=== PATIENT | male | born 1945 | race Caucasian/White ===

== ENCOUNTER 2017-05-06 11:55 | Inpatient (IN) | payer MEDICARE, MEDICAID ==
--- NOTE | 2017-05-06 12:32 | C.PDOC ---
History Of Present Illness 71 yr old male brought in via ambulance, presents to the ER with complaints of generalized weakness and occasional SOB for the past 1 month. Patient reports he had outpatient blood work done by his PMD on April 24 and was told his hemoglobin is 6.6 but wanted to rest at home. Patient denies fever, chest pain, nausea, vomiting, abdominal pain, diarrhea or rectal bleeding. Time Seen by Provider: 05/06/17 12:20 Chief Complaint (Nursing): Weakness/Neurological Deficit History Per: Patient History/Exam Limitations: no limitations Onset/Duration Of Symptoms: Persistent (1 month) Current Symptoms Are (Timing): Still Present Past Medical History Reviewed: Historical Data, Nursing Documentation, Vital Signs Vital Signs: Last Vital Signs Temp 98.4 F 05/06/17 14:01 Pulse 63 05/06/17 14:01 Resp 18 05/06/17 14:01 BP 155/67 H 05/06/17 14:01 Pulse Ox 100 05/06/17 14:01 - Medical History PMH: CHF, Diabetes, HTN, Hypercholesterolemia Family History: States: No Known Family Hx - Social History Hx Alcohol Use: No Hx Substance Use: No - Immunization History Hx Tetanus Toxoid Vaccination: No Hx Influenza Vaccination: No Hx Pneumococcal Vaccination: No Review Of Systems Except As Marked, All Systems Reviewed And Found Negative. Constitutional: Positive for: Weakness (Generalized). Negative for: Fever Cardiovascular: Negative for: Chest Pain Respiratory: Positive for: Shortness of Breath (Occasional ) Gastrointestinal: Negative for: Nausea, Vomiting, Abdominal Pain, Diarrhea, Rectal Pain Physical Exam - Physical Exam Appears: Well, Non-toxic, No Acute Distress, Other ((+) Speaking in full sentences.) Skin: Warm, Dry Head: Atraumatic, Normacephalic Eye(s): bilateral: Conjunctiva Pale Oral Mucosa: Moist Chest: Symmetrical, No Tenderness Cardiovascular: Rhythm Regular, No Murmur Respiratory: Normal Breath Sounds, No Rales, No Rhonchi, No Wheezing Rectal: Rectal Tone (normal ), No Maroon Stool, No Melena, No Blood Streaked Stool, No Hemorrhoids, No Mass, No Tenderness Extremity: Normal ROM, No Swelling Neurological/Psych: Oriented x3, Normal Speech, Normal Motor ED Course And Treatment - Laboratory Results Result Diagrams: 05/06/17 12:51 05/06/17 12:51 ECG: Interpreted By Me, Viewed By Me (NSR 67 bpm, normal axis, RBBB, no acute ST /T wave changes) ECG Interpretation: No Acute Changes, Abnormal O2 Sat by Pulse Oximetry: 100 (RA) Pulse Ox Interpretation: Normal Progress Note: PLAN: Blood work, CXR, EKG, & Urinlaysis ordered and reviewed. Patient given IV NS bolus. Hgb 6.3, further anemia studies ordered, and patient given 2 units PRBCs. - Physician Consult Information Physician Contacted: Pierre Anthony Outcome Of Conversation: Discussed patient with Dr. Anthony, he agrees with admission to hospitalist service. - Scribe Statement The provider has reviewed the documentation as recorded by the Mike Hernandez Provider Attestation: All medical record entries made by the Scribe were at my direction and personally dictated by me. I have reviewed the chart and agree that the record accurately reflects my personal performance of the history, physical exam, medical decision making, and the department course for this patient. I have also personally directed, reviewed, and agree with the discharge instructions and disposition.
[2017-05-06 13:01] LABS: BASO % 0.4 % (0.0-2.0); EOS % 0.4 % (0.0-4.0); HEMATOCRIT 20.1 % (35.0-51.0); LYMPH % 23.2 % (20.0-40.0); MEAN CELL VOLUME 73.7 fL (80.0-94.0); MEAN CORPUSCULAR HGB CONC 31.2 g/dL (33.0-37.0); MEAN PLATELET VOLUME 8.4 fL (7.2-11.7); MONO # 1.1 K/uL (0.0-0.8); MONO % 25.3 % (0.0-10.0); NRBC % 0.1 % (0.0-2.0); PLATELET COUNT 123 K/uL (130-400); RED CELL DISTRIBUTION WIDTH 19.7 % (11.5-14.5); WHITE BLOOD COUNT 4.5 K/uL (4.8-10.8)
[2017-05-06 13:10] LABS: RBC URINE 5 /hpf (0-3); URINE BILIRUBIN NEGATIVE (NEGATIVE); URINE BLOOD NEGATIVE (NEGATIVE); URINE COLOR Yellow (YELLOW); URINE GLUCOSE (UA) NORMAL (Normal); URINE KETONE NEGATIVE (NEGATIVE); URINE LEUKOCYTE ESTERASE NEG Leu/uL (Negative); URINE PROTEIN 2+ mg/dL (NEGATIVE); URINE UROBILINOGEN NORMAL mg/dL (0.2-1.0); WBC URINE 1 /hpf (0-5)
[2017-05-06 13:13] LABS: INR 1.1
[2017-05-06 13:17] LABS: CHLORIDE 96 mmol/L (98-107); POTASSIUM 4.6 mmol/L (3.6-5.2); SODIUM 133 mmol/L (132-148)
[2017-05-06 13:19] LABS: GFR AFRICAN-AMERICAN 48
[2017-05-06 13:20] LABS: ALKALINE PHOSPHATASE 65 U/L (38-126); ALT/SGPT 31 U/L (21-72); AST/SGOT 56 U/L (17-59); BILIRUBIN,TOTAL 0.6 mg/dL (0.2-1.3); BLOOD UREA NITROGEN 19 mg/dL (9-20); CALCIUM 9.6 mg/dl (8.6-10.4); CARBON DIOXIDE 24 mmol/L (22-30); GLUCOSE,RANDOM 167 mg/dL (75-110); TOTAL PROTEIN 7.7 g/dL (6.3-8.3)
[2017-05-06 13:42] LABS: NEUTROPHIL 68 % (50-75); TOTAL CELLS COUNTED 100
[2017-05-06 14:27] LABS: IRON 25 ug/dL (49-181)
--- NOTE | 2017-05-06 14:33 | RAD ---
PROCEDURE: CHEST RADIOGRAPH, 1 VIEW HISTORY: WEAKNESS COMPARISON: 08/07/2015 FINDINGS: LUNGS: Mild venous congestion. Bilateral hilar prominence. Upper lobe granulomatous changes with punctate nodular density at the left lung apex. Mild patchy increased markings at the right lung base. PLEURA: No pneumothorax or pleural fluid seen. CARDIOVASCULAR: Mild cardiomegaly. OSSEOUS STRUCTURES: Degenerative changes. VISUALIZED UPPER ABDOMEN: Normal. OTHER FINDINGS: None. IMPRESSION: Mild venous congestion. Bilateral hilar prominence. Upper lobe granulomatous changes with punctate nodular density at the left lung apex. Mild patchy increased markings at the right lung base.
[2017-05-06 15:30] LABS: FOLATE 9.1 ng/mL
--- NOTE | 2017-05-06 15:36 | CP.PCM.HP ---
History of Present Illness - History of Present Illness History of Present Illness: CC: weakness HPI: This is a 71 yo M with PMH significant for HTN, DMII and HLD that presents with the chief complaint of generalized weakness for the past month. He states that about 1 month ago he noticed that he had dark stools. A couple of days later the pt fell in his home due to weakness, at which time he did not seek medical attention. He did follow up with his PMD who ordered blood work at the time which revealed a low Hgb. Pt states that since then he has not noticed any further dark stools. He admits to decreased activity due to the weakness. He also admits to associated tachycardia with any minimal exertion. He denies any headaches, dizziness, chest pain, palpitations, sob (at rest), nausea or vomiting. PMH: as per HPI PSH: denies Home meds: Omeprazole, Hydralazine, Lasix, Atorvastatin, Pioglitazone, Janumet, Amlodipine, Atenolol, ASA Allergies: NKDA FH: non-contributory SH: Denies Etoh, tobacco or drugs Present on Admission - Present on Admission Any Indicators Present on Admission: No Review of Systems - Constitutional Constitutional: Fatigue, Weakness. absent: Chills, Fever - EENT Eyes: absent: Blurred Vision, Change in Vision - Cardiovascular Cardiovascular: absent: Chest Pain, Palpitations - Respiratory Respiratory: Dyspnea on Exertion. absent: Cough - Gastrointestinal Gastrointestinal: absent: Abdominal Pain, Constipation, Diarrhea, Nausea, Vomiting - Genitourinary Genitourinary: absent: Dysuria - Musculoskeletal Musculoskeletal: Numbness, Tingling. absent: Stiffness - Integumentary Integumentary: absent: Pruritus, Rash - Neurological Neurological: absent: Numbness, Tingling - Hematologic/Lymphatic Hematologic: absent: Easy Bruising Past Patient History - Infectious Disease Hx of Infectious Diseases: None - Past Social History Smoking Status: Never Smoked - CARDIAC Hx Congestive Heart Failure: Yes Hx Hypercholesterolemia: Yes Hx Hypertension: Yes - ENDOCRINE/METABOLIC Hx Endocrine Disorders: Yes Hx Diabetes Mellitus Type 2: Yes - GASTROINTESTINAL Hx Gastrointestinal Disorders: Yes Hx Gastroesophageal Reflux: Yes - PSYCHIATRIC Hx Substance Use: No - SURGICAL HISTORY Hx Surgeries: No Meds Allergies/Adverse Reactions: Allergies Allergy/AdvReac Type Severity Reaction Status Date / Time No Known Allergies Allergy Verified 05/06/17 12:16 Physical Exam - Constitutional Appears: Non-toxic, No Acute Distress - Head Exam Head Exam: ATRAUMATIC, NORMOCEPHALIC - Eye Exam Eye Exam: EOMI Pupil Exam: PERRL - ENT Exam ENT Exam: Mucous Membranes Moist - Respiratory Exam Respiratory Exam: Clear to Auscultation Bilateral, NORMAL BREATHING PATTERN - Cardiovascular Exam Cardiovascular Exam: +S1, +S2, Systolic Murmur - GI/Abdominal Exam GI & Abdominal Exam: Normal Bowel Sounds, Soft. absent: Distended, Guarding - Extremities Exam Extremities exam: Positive for: normal inspection - Back Exam Back exam: NORMAL INSPECTION - Neurological Exam Neurological exam: Alert, Oriented x3 - Skin Skin Exam: Dry, Warm Results - Vital Signs Recent Vital Signs: Last Vital Signs Temp 98.1 F 05/06/17 14:32 Pulse 63 05/06/17 15:10 Resp 16 05/06/17 15:10 BP 163/64 H 05/06/17 15:10 Pulse Ox 100 05/06/17 15:10 - Labs Result Diagrams: 05/06/17 12:51 05/06/17 12:51 Assessment & Plan - Assessment and Plan (Free Text) Assessment: Anemia - unknown chronicity - Hgb - 6.3 - Stool guaiac neg in ED - Being transfused 2 units of PRBCs - H/H Q6H for 24 hours - Transfuse as necessary - GI on consult - help appreciated - Abd/Pelvis CT with PO contrast - r/o mass - f/u - Monitor s/s for bleeding Weakness - Likely d/t anemia HTN - Cont home meds DM - Sliding scale coverage - accucheck ACHS - Diabetic diet PPX - Protonix - Holding chemical DVT ppx for suspected GI bleed - SCDs - Holding home ASA
--- NOTE | 2017-05-06 16:26 | CP.PCM.CON ---
History of Present Illness - History of Present Illness History of Present Illness: COVERING DR MOONEY/NORM: 71 yo male admitted with symptomatic anemia and indices c/w iron deficiency with low iron saturation, low ferritin and high RDW. Denies epigastric pain, heartburn or active bleeding. Describes dark stools one month ago and near syncope but no medical attention. Has been taking baby ASA daily. No hematemesis , rectal bleeding, Nausea or vomiting. Denies etoh, Nsaid use. No h/o PUD. Asked to evaluate for anemia and suspected GI bleeding. Stool OB in ER was negative. Past Patient History - Infectious Disease Hx of Infectious Diseases: None - Past Social History Smoking Status: Never Smoked Alcohol: None - CARDIAC Hx Congestive Heart Failure: Yes Hx Hypercholesterolemia: Yes Hx Hypertension: Yes - PULMONARY Hx Respiratory Disorders: No - NEUROLOGICAL Hx Neurological Disorder: No - ENDOCRINE/METABOLIC Hx Endocrine Disorders: Yes Hx Diabetes Mellitus Type 2: Yes - HEMATOLOGICAL/ONCOLOGICAL Hx Anemia: Yes Hx Blood Transfusions: No Hx Cirrhosis: No Hx Hepatitis A: No Hx Hepatitis B: No Hx Hepatitis C: No Hx Human Immunodeficiency Virus (HIV): No - GASTROINTESTINAL Hx Gastrointestinal Disorders: Yes Hx Bowel Surgery: No Hx Clostridium Difficile: No Hx Colitis: No Hx Colostomy: No Hx Constipation: No Hx Crohn's Disease: No Hx Diarrhea: No Hx Diverticulitis: No Hx Esophageal Varices: No Hx Fatty Liver Disease: No Hx Gall Bladder Disease: No Hx Gastritis: No Hx Gastroesophageal Reflux: Yes Hx Hemorrhoids: No Hx Ileostomy: No Hx Irritable Bowel: No Hx Liver Failure: No Hx Nausea: No Hx Pancreatitis: No HX Swallowing Problems: No Hx Ulcer: No Hx Vomiting: No - PSYCHIATRIC Hx Substance Use: No - SURGICAL HISTORY Hx Surgeries: No Meds Allergies/Adverse Reactions: Allergies Allergy/AdvReac Type Severity Reaction Status Date / Time No Known Allergies Allergy Verified 05/06/17 12:16 - Medications Medications: Current Medications Amlodipine Besylate (Norvasc) 10 mg PO DAILY [facility] Atenolol (Tenormin) 100 mg PO DAILY [facility] Hydralazine HCl (Apresoline) 50 mg PO BID [facility] Insulin Human Regular (Novolin R) 0 unit SC ACHS [facility] PRN Reason: Protocol Pantoprazole Sodium (Protonix Inj) 40 mg IVP DAILY [facility] Physical Exam - Constitutional Appears: No Acute Distress - Head Exam Head Exam: ATRAUMATIC - Eye Exam Eye Exam: EOMI, PERRL Pupil Exam: NORMAL ACCOMODATION, PERRL - Respiratory Exam Respiratory Exam: NORMAL BREATHING PATTERN - Cardiovascular Exam Cardiovascular Exam: REGULAR RHYTHM, +S1 - GI/Abdominal Exam GI & Abdominal Exam: Normal Bowel Sounds, Soft. absent: Distended, Mass, Rebound, Tenderness - Rectal Exam Rectal Exam: NORMAL INSPECTION - Extremities Exam Extremities exam: Positive for: normal inspection - Neurological Exam Neurological exam: Alert, CN II-XII Intact, Oriented x3 - Psychiatric Exam Psychiatric exam: Normal Affect, Normal Mood - Skin Skin Exam: Dry, Warm Results - Vital Signs Recent Vital Signs: Last Vital Signs Temp 98.5 F 05/06/17 15:42 Pulse 84 05/06/17 15:42 Resp 20 05/06/17 15:42 BP 170/80 H 05/06/17 15:42 Pulse Ox 100 05/06/17 15:42 - Labs Result Diagrams: 05/07/17 06:03 05/07/17 06:03 Assessment & Plan (1) Iron deficiency anemia Assessment and Plan: Iron deficiency anemia with remote h/o possible dark/melanotic stools one month ago. r/o PUD given h/o ASA use. other possible sources include gastritis, AVM, erosive esophagitis, LGI source including occult cancer, polyposis, ischemic or other colitis, IBD, diverticular disease, etc. Does not appear to be actively bleeding at present given negative stool exam on admission Rec/ Repeat stool OBx3 check B12 and folate levels Agree with transfusion to hgb>9. Protonix IV Hold ASA or anticoagulants Will plan for EGD in am and colonoscopy to follow before discharge later in the week if medically stable or as outpatient. Case discussed with Dr Hughes and [employer] on the case. Status: Acute Priority: High (2) Melena Status: Resolved
[2017-05-06] MEDS: (Novolin R) Insulin Human Regular 100 units/ml vial SC SCH ×4 (16:53→21:44)
[2017-05-06 23:34] LABS: BASO % 0.7 % (0.0-2.0); EOS # 0.1 K/uL (0.0-0.7); EOS % 1.4 % (0.0-4.0); HEMATOCRIT 23.4 % (35.0-51.0); LYMPH # 1.3 K/uL (1.0-4.3); MEAN CELL VOLUME 74.6 fL (80.0-94.0); MEAN CORPUSCULAR HEMOGLOBIN 23.8 pg (27.0-31.0); MEAN CORPUSCULAR HGB CONC 31.9 g/dL (33.0-37.0); MEAN PLATELET VOLUME 9.2 fL (7.2-11.7); MONO # 1.2 K/uL (0.0-0.8); MONO % 21.8 % (0.0-10.0); PLATELET COUNT 116 K/uL (130-400); RED CELL DISTRIBUTION WIDTH 19.8 % (11.5-14.5); WHITE BLOOD COUNT 5.6 K/uL (4.8-10.8)
[2017-05-06 23:43] LABS: POTASSIUM 4.5 mmol/L (3.6-5.2)
[2017-05-06 23:45] LABS: BILIRUBIN,TOTAL 0.8 mg/dL (0.2-1.3)
[2017-05-06 23:46] LABS: TOTAL PROTEIN 7.8 g/dL (6.3-8.3)
[2017-05-06 23:47] LABS: CALCIUM 9.6 mg/dl (8.6-10.4)
[2017-05-07] MEDS ORDERED: Dextrose 5%/0.9% NS 1,000 ML IV SCH (01:00)
[2017-05-07 03:27] LABS: BASOPHIL 1 % (0-2); EOSINOPHIL 1 % (0-4); NEUTROPHIL 51 % (50-75); REACTIVE LYMPHOCYTES 3 % (0-0); TOTAL CELLS COUNTED 100
[2017-05-07 03:28] LABS: GIANT PLATELETS PRESENT; SPHEROCYTES MODERATE
[2017-05-07 06:15] LABS: HEMATOCRIT 25.5 % (35.0-51.0); MEAN CORPUSCULAR HEMOGLOBIN 24.4 pg (27.0-31.0); MEAN CORPUSCULAR HGB CONC 32.1 g/dL (33.0-37.0); MEAN PLATELET VOLUME 8.5 fL (7.2-11.7); RED CELL DISTRIBUTION WIDTH 19.6 % (11.5-14.5); WHITE BLOOD COUNT 4.5 K/uL (4.8-10.8)
[2017-05-07 06:50] LABS: CHLORIDE 95 mmol/L (98-107); POTASSIUM 4.4 mmol/L (3.6-5.2); SODIUM 128 mmol/L (132-148)
[2017-05-07 06:52] LABS: ALB/GLOB RATIO 0.9 (1.0-2.1); AST/SGOT 51 U/L (17-59); BILIRUBIN,TOTAL 1.2 mg/dL (0.2-1.3); CARBON DIOXIDE 23 mmol/L (22-30); GFR AFRICAN-AMERICAN > 60; TOTAL PROTEIN 7.7 g/dL (6.3-8.3)
[2017-05-07 06:53] LABS: ALKALINE PHOSPHATASE 54 U/L (38-126); ALT/SGPT 27 U/L (21-72); BLOOD UREA NITROGEN 19 mg/dL (9-20); CALCIUM 9.2 mg/dl (8.6-10.4); GLUCOSE,RANDOM 165 mg/dL (75-110); MAGNESIUM 1.3 mg/dL (1.6-2.3); PHOSPHOROUS 4.6 mg/dL (2.5-4.5)
[2017-05-07] MEDS ORDERED: Propofol 10 mg/ml Inj (20 ML) ONE (07:25)
--- NOTE | 2017-05-07 07:55 | CP.PCM.PN ---
Subjective - Date & Time of Evaluation Date of Evaluation: 05/07/17 Time of Evaluation: 07:52 - Subjective Subjective: EGD: Acute pre-pyloric gastric antral ulcer without stigmata of hemorrhage, margins biopsied Acute antral gastritis Rec/ PPI bid for one week then daily Colonoscopy on Sunday if patient still admitted or may be done a outpatient if discharge planned. Would need to be sure by his PCP that he is not lost to follow up!! Repeat EGD in 8 weeks to assess ulcer healing and r/o malignancy. Objective - Vital Signs/Intake and Output Vital Signs (last 24 hours): Temp Pulse Resp BP Pulse Ox 97.4 F L 84 20 156/74 H 96 05/07/17 07:42 05/07/17 07:42 05/07/17 07:42 05/07/17 07:42 05/07/17 07:42 Intake and Output: 05/07/17 05/07/17 06:59 18:59 Intake Total 1060 0 Output Total 1500 Balance -440 0 - Medications Medications: Current Medications Amlodipine Besylate (Norvasc) 10 mg PO DAILY [facility] Atenolol (Tenormin) 100 mg PO DAILY [facility] Last Admin: 05/07/17 06:52 Dose: 100 mg Hydralazine HCl (Apresoline) 50 mg PO BID [facility] Last Admin: 05/06/17 18:01 Dose: 50 mg Dextrose/Sodium Chloride (Dextrose 5%/0.9% Ns 1000 Ml) 1,000 mls @ 80 mls/hr IV .[id number] [facility] Last Admin: 05/07/17 05:00 Dose: 80 mls/hr Insulin Human Regular (Novolin R) 0 unit SC ACHS [facility] PRN Reason: Protocol Last Admin: 05/06/17 21:44 Dose: Not Given Pantoprazole Sodium (Protonix Inj) 40 mg IVP DAILY [facility] Pneumococcal Polyvalent Vaccine (Pneumovax 23 Vaccine) 0.5 ml IM .ONCE ONE Stop: 05/08/17 10:01 - Labs Labs: 05/07/17 06:03 05/07/17 06:03 PT 13.1 SECONDS (9.7-12.2) H 05/06/17 12:51 INR 1.1 05/06/17 12:51 APTT 29 SECONDS (21-34) 05/06/17 12:51 Assessment and Plan (1) Iron deficiency anemia Status: Acute (2) Melena Status: Resolved
[2017-05-07 08:07] VITALS: TEMP 97.8; O2SAT 100
[2017-05-07 08:35] VITALS: BP 140/80; PULSE 57; RESP 13
[2017-05-07] MEDS ORDERED: Pantoprazole 40 mg EC Tab PO SCH (10:00)
--- NOTE | 2017-05-07 10:28 | CP.PCM.PN ---
Subjective - Date & Time of Evaluation Date of Evaluation: 05/07/17 Time of Evaluation: 10:22 - Subjective Subjective: PGY1 Progress note for Dr. Hughes: Patient seen and examined. Patient s/p EGD with Dr. Sotelo today. Patient states he feels much better after transfusion. Patient complaining of abdominal distention after EGD. Discussed with patient results of EGD and necessity for colonoscopy on Sunday. Patient will have to prep for colonoscopy tomorrow. Objective - Vital Signs/Intake and Output Vital Signs (last 24 hours): Temp Pulse Resp BP Pulse Ox 97.8 F 57 L 13 140/80 100 05/07/17 07:59 05/07/17 08:29 05/07/17 08:29 05/07/17 08:29 05/07/17 08:29 Intake and Output: 05/07/17 05/07/17 06:59 18:59 Intake Total 1060 500 Output Total 1500 Balance -440 500 - Medications Medications: Current Medications Amlodipine Besylate (Norvasc) 10 mg PO DAILY [facility] Atenolol (Tenormin) 100 mg PO DAILY [facility] Last Admin: 05/07/17 06:52 Dose: 100 mg Bisacodyl (Dulcolax) 10 mg PO ONCE ONE Stop: 05/08/17 17:01 Hydralazine HCl (Apresoline) 50 mg PO BID [facility] Last Admin: 05/06/17 18:01 Dose: 50 mg Insulin Human Regular (Novolin R) 0 unit SC ACHS [facility] PRN Reason: Protocol Last Admin: 05/06/17 21:44 Dose: Not Given Pantoprazole Sodium (Protonix Ec Tab) 40 mg PO BID [facility] Pneumococcal Polyvalent Vaccine (Pneumovax 23 Vaccine) 0.5 ml IM .ONCE ONE Stop: 05/08/17 10:01 Polyethylene Glycol/Electrolytes (Golytely) 4,000 ml PO ONCE ONE Stop: 05/08/17 19:01 - Labs Labs: 05/07/17 06:03 05/07/17 06:03 PT 13.1 SECONDS (9.7-12.2) H 05/06/17 12:51 INR 1.1 05/06/17 12:51 APTT 29 SECONDS (21-34) 05/06/17 12:51 - Constitutional Appears: Non-toxic, No Acute Distress - Eye Exam Eye Exam: EOMI - ENT Exam ENT Exam: Mucous Membranes Moist - Respiratory Exam Respiratory Exam: Clear to Ausculation Bilateral, NORMAL BREATHING PATTERN - Cardiovascular Exam Cardiovascular Exam: +S1, +S2 - GI/Abdominal Exam GI & Abdominal Exam: Soft, Normal Bowel Sounds. absent: Tenderness - Extremities Exam Extremities Exam: Normal Inspection - Neurological Exam Neurological Exam: Alert, Awake - Psychiatric Exam Psychiatric exam: Normal Affect - Skin Skin Exam: Dry, Warm Assessment and Plan - Assessment and Plan (Free Text) Assessment: Anemia - Hgb - 6.3 on admission, repeat this AM 8.2 s/p transfusion of 2 units PRBC - Stool guaiac neg in ED - H/H Q6H for 24 hours - Transfuse as necessary - Abd/Pelvis CT with PO contrast - r/o mass - f/u - Monitor s/s for bleeding - GI, Dr. Sotelo, on consult - help appreciated * patient s/p EGD 05/07- acute pre-pyloric gastric antral ulcer without stigmata of hemorrhage- biopsied- per Dr. Sotelo, ulcer could be source of bleeding but patient will need colonoscopy on Sunday * Protonix 40mg BID for one week * repeat EGD in 8 weeks Weakness - Likely secondary to anemia HTN - Cont home meds- hydralazine 50mg BID, atenolol 100mg daily, norvasc 10mg daily DM - Sliding scale coverage - accucheck ACHS - Diabetic diet - holding home meds actos, janumet PPX - Protonix 40mg BID - Holding chemical DVT ppx - SCDs - Holding home ASA - PT/ OT
[2017-05-07] MEDS: (Novolin R) Insulin Human Regular 100 units/ml vial SC SCH ×2 (11:08→12:27)
[2017-05-07] MEDS ORDERED: Pneumococcal 23-Valent Vaccine IM ONE (13:30)
--- NOTE | 2017-05-07 14:03 | CP.PCM.DIS ---
Provider - Provider Date of Admission: 05/06/17 14:08 Attending physician: Pierre Anthony MD Primary care physician: Dr. Chávez Consults: Dr. Sotelo Time Spent in preparation of Discharge (in minutes): 35 Diagnosis - Discharge Diagnosis (1) Gastric ulcer Status: Acute Comment: Patient s/p EGD with Dr. Sotelo today, 05/07. Patient is leaving the hospital against medical advice. Patient is advised to follow up with his PMD for referral to GI for outpatient colonoscopy and repeat EGD in 8 weeks. Patient is being script for protonix 40mg twice day for one week. Hospital Course - Lab Results Lab Results: Most Recent Lab Values WBC 4.5 K/uL (4.8-10.8) L 05/07/17 06:03 RBC 3.36 Mil/uL (4.40-5.90) L 05/07/17 06:03 Hgb 8.2 g/dL (12.0-18.0) L 05/07/17 06:03 Hct 25.5 % (35.0-51.0) L 05/07/17 06:03 MCV 76.0 fL (80.0-94.0) L 05/07/17 06:03 MCH 24.4 pg (27.0-31.0) L 05/07/17 06:03 MCHC 32.1 g/dL (33.0-37.0) L 05/07/17 06:03 RDW 19.6 % (11.5-14.5) H 05/07/17 06:03 Plt Count 103 K/uL (130-400) L 05/07/17 06:03 MPV 8.5 fL (7.2-11.7) 05/07/17 06:03 Neut % (Auto) 52.1 % (50.0-75.0) 05/06/17 23:32 Lymph % (Auto) 24.0 % (20.0-40.0) 05/06/17 23:32 [place] % (Auto) 21.8 % (0.0-10.0) H 05/06/17 23:32 Eos % (Auto) 1.4 % (0.0-4.0) 05/06/17 23:32 Baso % (Auto) 0.7 % (0.0-2.0) 05/06/17 23:32 Neut # 2.9 K/uL (1.8-7.0) 05/06/17 23:32 Lymph # 1.3 K/uL (1.0-4.3) 05/06/17 23:32 [place] # 1.2 K/uL (0.0-0.8) H 05/06/17 23:32 Eos # 0.1 K/uL (0.0-0.7) 05/06/17 23:32 Baso # 0.0 K/uL (0.0-0.2) 05/06/17 23:32 Neutrophils % (Manual) 51 % (50-75) 05/06/17 23:32 Lymphocytes % (Manual) 16 % (20-40) L 05/06/17 23:32 Reactive Lymphs % 3 % (0-0) H 05/06/17 23:32 Monocytes % (Manual) 28 % (0-10) H 05/06/17 23:32 Eosinophils % (Manual) 1 % (0-4) 05/06/17 23:32 Basophils % (Manual) 1 % (0-2) 05/06/17 23:32 Platelet Estimate Decreased (NORMAL) L 05/06/17 23:32 Giant Platelets Present 05/06/17 23:32 Polychromasia Slight 05/06/17 12:51 Hypochromasia (manual) Slight 05/06/17 23:32 Poikilocytosis (manual Slight 05/06/17 23:32 Anisocytosis (manual) Slight 05/06/17 23:32 Microcytosis (manual) Slight 05/06/17 23:32 Spherocytes Moderate 05/06/17 23:32 Ovalocytes Slight 05/06/17 12:51 Retic Count 2.5 % (0.5-1.5) H 05/06/17 13:59 PT 13.1 SECONDS (9.7-12.2) H 05/06/17 12:51 INR 1.1 05/06/17 12:51 APTT 29 SECONDS (21-34) 05/06/17 12:51 Sodium 128 mmol/L (132-148) L 05/07/17 06:03 Potassium 4.4 mmol/L (3.6-5.2) 05/07/17 06:03 Chloride 95 mmol/L (98-107) L 05/07/17 06:03 Carbon Dioxide 23 mmol/L (22-30) 05/07/17 06:03 Anion Gap 14 (10-20) 05/07/17 06:03 BUN 19 mg/dL (9-20) 05/07/17 06:03 Creatinine 1.3 MG/DL (0.8-1.5) 05/07/17 06:03 Est GFR ( Amer) > 60 05/07/17 06:03 Est GFR (Non-Af Amer) 55 05/07/17 06:03 POC Glucose (mg/dL) 335 mg/dL (65-110) H 05/07/17 11:12 Random Glucose 165 mg/dL (75-110) H 05/07/17 06:03 Calcium 9.2 mg/dl (8.6-10.4) 05/07/17 06:03 Phosphorus 4.6 mg/dL (2.5-4.5) H 05/07/17 06:03 Magnesium 1.3 mg/dL (1.6-2.3) L 05/07/17 06:03 Iron 25 ug/dL (49-181) L 05/06/17 13:59 TIBC 501 ug/dL (250-450) H 05/06/17 13:59 % Saturation 5 (20-55) L 05/06/17 13:59 Transferrin 403.28 mg/dL (206-381) H 05/06/17 13:59 Ferritin 7.6 ng/mL 05/06/17 13:59 Total Bilirubin 1.2 mg/dL (0.2-1.3) 05/07/17 06:03 AST 51 U/L (17-59) 05/07/17 06:03 ALT 27 U/L (21-72) 05/07/17 06:03 Alkaline Phosphatase 54 U/L (38-126) 05/07/17 06:03 Total Creatine Kinase 119 U/L (55-170) 05/06/17 12:51 CK-MB (Mass) 2.75 ng/mL (0.0-3.38) 05/06/17 12:51 Troponin I < 0.0120 ng/mL (0.00-0.120) 05/06/17 12:51 NT-Pro-B Natriuret Pep 274 pg/mL (0-900) 05/06/17 12:51 Total Protein 7.7 g/dL (6.3-8.3) 05/07/17 06:03 Albumin 3.7 g/dL (3.5-5.0) 05/07/17 06:03 Globulin 4.0 gm/dL (2.2-3.9) H 05/07/17 06:03 Albumin/Globulin Ratio 0.9 (1.0-2.1) L 05/07/17 06:03 Vitamin B12 474 pg/mL (239-931) 05/06/17 13:59 Folate 9.1 ng/mL 05/06/17 13:59 Urine Color Yellow (YELLOW) 05/06/17 12:54 Urine Clarity Clear (Clear) 05/06/17 12:54 Urine pH 7.0 (5.0-8.0) 05/06/17 12:54 Ur Specific [place] 1.010 (1.003-1.030) 05/06/17 12:54 Urine Protein 2+ mg/dL (NEGATIVE) H 05/06/17 12:54 Urine Glucose (UA) Normal mg/dL (Normal) 05/06/17 12:54 Urine Ketones Negative mg/dL (NEGATIVE) 05/06/17 12:54 Urine Blood Negative (NEGATIVE) 05/06/17 12:54 Urine Nitrate Negative (NEGATIVE) 05/06/17 12:54 Urine Bilirubin Negative (NEGATIVE) 05/06/17 12:54 Urine Urobilinogen Normal mg/dL (0.2-1.0) 05/06/17 12:54 Ur Leukocyte Esterase Neg [place]fo/uL (Negative) 05/06/17 12:54 Urine WBC (Auto) 1 /hpf (0-5) 05/06/17 12:54 Urine RBC (Auto) 5 /hpf (0-3) H 05/06/17 12:54 Amorphous Sediment Rare /ul (<OCC) H 05/06/17 12:54 Stool Occult Blood Negative (NEGATIVE) 05/06/17 13:25 Blood Type A POSITIVE 05/06/17 12:31 Blood Type Confirm A POSITIVE 05/06/17 12:31 Antibody Screen Negative 05/06/17 12:31 - Hospital Course Hospital Course: On Admission: This is a 71 yo M with PMH significant for HTN, DMII and HLD that presents with the chief complaint of generalized weakness for the past month. He states that about 1 month ago he noticed that he had dark stools. A couple of days later the pt fell in his home due to weakness, at which time he did not seek medical attention. He did follow up with his PMD who ordered blood work at the time which revealed a low Hgb. Pt states that since then he has not noticed any further dark stools. He admits to decreased activity due to the weakness. He also admits to associated tachycardia with any minimal exertion. He denies any headaches, dizziness, chest pain, palpitations, sob (at rest), nausea or vomiting. During Hospitalization: Patient had hemoglobin 6.3 on admission and was transfused two units PRBC. Repeat hemoglobin this morning was 8.2 Patient had EGD with Dr. Sotelo-acute pre-pyloric gastric antral ulcer without stigmata of hemorrhage- biopsied. Patient is advised to follow up with PMD for GI referral to have repeat EGD and colonoscopy. On Discharge: Patient s/p EGD with Dr. Sotelo today, 05/07. Patient is leaving the hospital against medical advice. Patient is advised to follow up with his PMD for referral to GI for outpatient colonoscopy and repeat EGD in 8 weeks. Patient is being script for protonix 40mg twice day for one week. Patient should resume other home medications. Patient is advised to return to the ED if symptoms reoccur or worsen. This is only a summary of patient's hospitalization, for more detail please see complete record. Discharge Exam - Head Exam Head Exam: ATRAUMATIC - Eye Exam Eye Exam: EOMI - ENT Exam ENT Exam: Mucous Membranes Moist - Respiratory Exam Respiratory Exam: Clear to PA & Lateral, NORMAL BREATHING PATTERN - Cardiovascular Exam Cardiovascular Exam: +S1, +S2 - GI/Abdominal Exam GI & Abdominal Exam: Normal Bowel Sounds, Soft. absent: Tenderness - Extremities Exam Extremities exam: normal inspection - Neurological Exam Neurological exam: Alert, Oriented x3 - Psychiatric Exam Psychiatric exam: Normal Affect - Skin Skin Exam: Warm Discharge Plan - Follow Up Plan Condition: GOOD Disposition: AGAINST MEDICAL ADVICE Instructions: Pantoprazole (By mouth), Heart Failure (DC), Gastrointestinal Bleeding (DC), Anemia (DC) Additional Instructions: Patient is leaving against medical advice. Patient was explained risks including worsening anemia and even . Patient accepts these risks. Patient encouraged to follow up with PMD for referral to GI for colonoscopy. Patient expressed understanding and agrees. Patient given prescription for protonix 40mg PO BID for one week. Referrals: Margo Chávez MD [Staff Provider] - Tacho Barba MD [Staff Provider] - Shahram Sotelo MD [Staff Provider] -
--- NOTE | 2017-05-07 18:29 | CARD ---
APPROVED REPORT EKG Measurement Heart [id number] <Conclusion> Normal sinus rhythm Right bundle branch block Abnormal ECG
[2017-05-08] MEDS ORDERED: Bisacodyl 5mg EC Tab PO ONE (17:00)
[2017-05-08] MEDS ORDERED: Peg-Electrolyte Oral Soln 4L (Golytely) PO ONE (19:00)
== END 2017-05-07 14:08 | disposition left against medical advice (07) | DRG 384 ==
LOC: C.ER 11:55 → C.9E 14:08 → C.3T 14:56
PROVIDERS: ADMIT Internal Medicine; ATTEND Internal Medicine
PROC: 30233N1 Transfusion of Nonautologous Red Blood Cells into Peripheral Vein, Percutaneous Approach (ICD-10-PCS; principal; 2017-05-06)
PROC: 0DB88ZX Excision of Small Intestine, Via Natural or Artificial Opening Endoscopic, Diagnostic (ICD-10-PCS; 2017-05-07)
DX: K25.3 Acute gastric ulcer without hemorrhage or perforation (principal); K92.1 Melena; I11.0 Hypertensive heart disease with heart failure; I50.9 Heart failure, unspecified; D50.9 Iron deficiency anemia, unspecified; E11.9 Type 2 diabetes mellitus without complications; E78.5 Hyperlipidemia, unspecified; K21.9 Gastro-esophageal reflux disease without esophagitis; E78.00 Pure hypercholesterolemia, unspecified; Z79.4 Long term (current) use of insulin; K29.60 Other gastritis without bleeding